=== PATIENT | male | born 1960 | race African-American/Black ===

== ENCOUNTER 2016-09-07 16:24 | Emergency (ER) | payer OTHER ==
[~2016-09-07] VITALS: Ht 180.3 cm; Wt 110.6 kg
[2016-09-07] MEDS ORDERED: PREDNISONE10 MG PO (18:00)
[2016-09-07] MEDS ORDERED: PEPCID20 MG PO (18:00)
[2016-09-07] MEDS ORDERED: BENADRYL50 MG PO (18:00)
[2016-09-07 18:11] VITALS: BP 131/87
== END 2016-09-07 18:33 | disposition home or self-care (01) ==
LOC: EME 16:24
DX: T78.3XXA Angioneurotic edema, initial encounter (principal); T46.4X5A Adverse effect of angiotensin-converting-enzyme inhibitors, initial encounter; I10 Essential (primary) hypertension; F17.200 Nicotine dependence, unspecified, uncomplicated
CPT/HCPCS: 99281; 99285; J1200; J2930; S0028